=== PATIENT | female | born 1985 | race Two or more races ===

== ENCOUNTER 2016-11-26 19:09 | Emergency (ER) | payer OTHER ==
--- NOTE | ~2016-11-26 | US140 ---
[facility] A Service of [facility] RADIOLOGY TEXT RESULTS PATIENT: MEEK PARSONS LOCATION: CFTX : [birth year] UNIT #: [id number] AGE: [address]: JOSELO DARBY APRN SEX: F ORDER DR: [id number] [facility] [address] [place], [place] [address] [id number] MR#: [id number] Acc #: [id number] NAME: MEEK PARSONS : 1985 SEX: F STUDY DATE/TIME: 11/26/2016 19:43 UNIT: [facility] ROOM: STUDY DESCRIPTION: UE Veins Unilat or Ltd Stdy Attending Physician: Joselo Darby Aprn Referring Physician: Jaycee Nogueira M.D. Ordering Physician: eRgine Triana P.A.-C. Primary Care Physician: Jaycee Nogueira M.D. MEDICAL IMAGING REPORT This report is preliminary unless electronic signature is present EXAM Left upper extremity venous Doppler performed on 11/26/2016. HISTORY 31-year-old female with left upper extremity pain for the past 2 weeks. FINDINGS Elam-scale, color flow and spectral Doppler evaluation of the veins in the left upper extremity including the left internal jugular vein were performed. Normal phasic flow and compressibility is seen in the deep veins, as well as the internal jugular vein, and compressibility is present. The cephalic and basilic veins are also patent, with normal phasic flow and compressibility and no DVT or SVT is appreciated. IMPRESSION No evidence of a DVT in the left upper extremity. Dictated by... Toni Ibarra M.D. THIS IS AN ELECTRONICALLY VERIFIED REPORT Toni Ibarra M.D. at 11/27/2016 7:06 PM DAVID/cayla TD: 11/26/2016 23:47 JOB #: [id number] MEDICAL IMAGING REPORT COPY
[~2016-11-26 19:09] MED LIST: AMOXICILLIN500 M1 PO; FIORICET W/CODE1 CAP PO; PRENATAL1 TA1 PO; VICODIN 5/1 TAB 5/50 PO
== END 2016-11-26 20:10 | disposition home or self-care (01) ==
LOC: CFTX 19:09
DX: S46.212A Strain of muscle, fascia and tendon of other parts of biceps, left arm, initial encounter (principal); X58.XXXA Exposure to other specified factors, initial encounter
CPT/HCPCS: 93971; 99284